=== PATIENT | male | born 2005 | race Two or more races ===

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

== ENCOUNTER 2024-02-13 13:57 | Outpatient (CLI) | payer OTHER | END 2024-02-13 13:58 | disposition home or self-care (01) | LOC: CSHCT 13:57 | PROVIDERS: ATTEND Internal Medicine Gastroenterology | DX: R19.7 Diarrhea, unspecified (principal); R10.9 Unspecified abdominal pain; F41.9 Anxiety disorder, unspecified; F32.A Depression, unspecified; K92.1 Melena; F12.20 Cannabis dependence, uncomplicated | CPT/HCPCS: 74177 ==